=== PATIENT | male | born 1950 | race Caucasian/White ===

== ENCOUNTER → 2018-11-30 10:14 | Outpatient (CLI) | payer MEDICARE, SELFPAY ==
[2018-11-30 12:55] LABS: PSA,Total- Diagnostic 2.52 ng/mL (0.0-4.0)
== END ==
PROVIDERS: Family Provider Internal Medicine; PCP Internal Medicine; Referring Provider Nurse Practitioner Adult Health; Visit Provider Nurse Practitioner Adult Health
DX: R97.20 Elevated prostate specific antigen [PSA] (principal)
CPT/HCPCS: 36415; 84153

== ENCOUNTER 2022-12-08 20:11 | Emergency (ER) | payer MEDICARE, SELFPAY ==
[2022-12-08 20:11] VITALS: BP 128/93; PULSE 103; RESP 18; TEMP 36.4; O2SAT 99
[2022-12-08 20:23] VITALS: BMI 35.6
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
== END 2022-12-08 21:27 | disposition home or self-care (01) ==
LOC: ED 21:23
PROVIDERS: Emergency Provider Emergency Medicine; PCP Internal Medicine; Visit Provider Emergency Medicine
DX: R52 Pain, unspecified (principal); E11.9 Type 2 diabetes mellitus without complications; Z79.4 Long term (current) use of insulin; I10 Essential (primary) hypertension; Z79.899 Other long term (current) drug therapy; Z79.84 Long term (current) use of oral hypoglycemic drugs; Z79.85 Long-term (current) use of injectable non-insulin antidiabetic drugs; V43.52XA Car driver injured in collision with other type car in traffic accident, initial encounter; Y92.410 Unspecified street and highway as the place of occurrence of the external cause
CPT/HCPCS: 99283

== ENCOUNTER → 2023-02-26 | Outpatient (CLI) | payer MEDICARE, SELFPAY ==
--- NOTE | 2023-02-26 08:13 | US_ITS ---
STUDY: ABDOMINAL ULTRASOUND - RIGHT UPPER QUADRANT; ELASTOGRAPHY REASON FOR VISIT: Male, 72 years old. Fatty infiltration of the liver. TECHNIQUE: Ultrasound evaluation of the right upper quadrant was performed with real-time and static smith-scale imaging. Point quantification shear wave elastography was performed (adQ). TECHNICAL QUALITY: Adequate. COMPARISON: None. FINDINGS: Liver: The liver measures 16.3 cm. There is increased echogenicity consistent with fatty infiltration. The bile ducts are within normal limits. There is hepatic color flow. The direction of portal flow is hepatopetal. There is no demonstrated mass lesion. Median liver stiffness measured 10 kPa. Gallbladder: The patient is status post cholecystectomy. Common Bile Duct (C.B.D.): The common bile duct measures 5 mm. Pancreas: The pancreas was not visualized due to overlying bowel gas. Right Kidney: Normal size of the right kidney. The right kidney measures 10.4 cm x 5.8 cm x 6.6 cm. Normal renal cortex. The right cortex measures 1.8 cm. There is no demonstrated renal mass or cyst. There is no right hydronephrosis. US/ABD Limited w/ Elastography IMPRESSION: 1. Liver stiffness measures 10 kPa compatible with F2-F3 (Mild to moderate liver fibrosis) Metavir score. Electronically Signed: Thor Ramos MD at 10:10 EDT ,
== END | disposition home or self-care (01) ==
LOC: US 08:12
PROVIDERS: PCP Internal Medicine; Referring Provider Internal Medicine Gastroenterology; Visit Provider Internal Medicine Gastroenterology
DX: K76.0 Fatty (change of) liver, not elsewhere classified (principal)
CPT/HCPCS: 76705; 76981

== ENCOUNTER 2023-11-15 16:32 | Emergency (ER) | payer MEDICARE, SELFPAY ==
[2023-11-15 16:32] VITALS: BP 156/86; PULSE 102; RESP 20; TEMP 36.1; O2SAT 97; BMI 36.2
--- NOTE | 2023-11-15 16:46 | EDS_ITS ---
HPI History of Present Illness Chief Complaint: Allergic Reaction Informant: patient and spouse/S.O. Onset/Context/Timing Onset: Today Narrative Narrative: Patient presents after a sting to the left index finger. He states he felt something crawling on his hair and when he swatted at it he was stung on the left index finger. He does not know if it was the bee or wasp. 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 He denies shortness of breath, throat tightness, tongue swelling. He denies hives or itching. He did not have his EpiPen with him. [facility] Medical History Anemia HTN (hypertension) Diabetes Home Medications ?Medication ?Instructions ?Recorded ?Last Taken ?Type alogliptin 6.25 mg tablet 6.25 mg PO DAILY 12/08/22 Unknown History empagliflozin 25 mg tablet 25 mg PO DAILY 12/08/22 Unknown History (Jardiance) insulin glargine 100 unit/mL (3 54 unit subcut DAILY 12/08/22 Unknown History mL) subcutaneous pen (Lantus Solostar U-100 Insulin) metformin 1,000 mg tablet 1,000 mg PO BID 12/08/22 Unknown History sitagliptin phosphate 50 mg tablet 50 mg PO DAILY 12/08/22 Unknown History (Januvia) Allergy/AdvReac Type Severity Reaction Status Date / Time bee venom protein (honey bee) Allergy Severe Anaphylaxis Verified 12/08/22 20:15 Penicillins Allergy Mild Rash Verified 12/08/22 20:15 Barbiturates Allergy Unknown unknown Verified 12/08/22 20:15 Social History Smoking Status: Never smoker ROS [facility] ED Constitutional Constitutional ED: Denies chills or fever(s) ENT ENT ED: Denies rhinorrhea or sore throat Cardiovascular Cardiovascular: Denies chest pain or palpitations Respiratory/Chest Respiratory/Chest: Denies cough or dyspnea Gastrointestinal Gastrointestinal: Denies abdominal pain, nausea or vomiting Musculoskeletal Musculoskeletal: Reports extremity pain; Denies back pain Integumentary Denies Abrasions or rash Neurologic Neurologic: Denies headache(s) or weakness Psychiatric Psychiatric: Denies anxiety or depression Allergic/Immunologic Allergic/Immunologic ED: Denies lip swelling or urticaria EXAM Physical Exam Const Vital Signs: 11/15/23 16:32 Temperature 97 F L Temperature Source Temporal Pulse Rate 102 H Respiratory Rate 20 H Blood Pressure 156/86 H Blood Pressure Mean 109 Pulse Ox 97 Oxygen Delivery Method Room Air Positive well nourished and well developed General Appearance ED: well developed HEENT Reports moist mucous membranes Eyes EOMs intact bilaterally Chest Wall inspection of chest normal and palpation of chest normal Resp normal respiratory effort and clear to auscultation bilaterally Cardio regular rate and regular rhythm GI non-tender and non-distended Extremity Extremity Narrative: Patient with a puncture wound to the proximal phalanx of the left index finger. Edema noted. Good range of motion with good cap refill and sensation distally. Neuro oriented x3 and no sensory deficits noted Motor Exam: strength 5/5 throughout Psych mental status grossly normal MDM MDM MDM Narrative Medical decision making narrative: Patient placed on monitor worker. Ice pack applied to the left hand. Benadryl, Pepcid, and prednisone given. Patient was observed for 2 hours after arrival. He has had no symptoms. He will be discharged home with his . Return instructions provided. Discharge Plan Triage Chief Complaint: Allergic Reaction ED Provider: Melonie Duron Dx/Rx/DC Orders Clinical Impression: Bee sting Instructions: ED BEE STING General Allergic Rxn Prescriptions: No Action metformin 1,000 mg tablet 1,000 mg PO BID alogliptin 6.25 mg tablet 6.25 mg PO DAILY Januvia 50 mg tablet 50 mg PO DAILY Jardiance 25 mg tablet 25 mg PO DAILY insulin glargine [Lantus Solostar U-100 Insulin] 100 unit/mL (3 mL) insulin pen 54 unit subcut DAILY Primary Care Provider: Robb Izquierdo Referrals: Robb Izquierdo DO [Primary Care Provider] - As Needed Print Language: Persian Disposition Disposition: Home, Self Care
[2023-11-15] MEDS: Famotidine 20 MG Tablet 40 MG PO (16:51)
[2023-11-15] MEDS: predniSONE 20 MG Tablet 60 MG PO (16:51)
[2023-11-15] MEDS: DiphenhydrAMINE 25 MG Capsule 50 MG PO (16:51)
[2023-11-15 19:06] VITALS: BP 158/85; PULSE 90; RESP 16; TEMP 36.6; O2SAT 98
== END 2023-11-15 19:07 | disposition home or self-care (01) ==
PROVIDERS: Emergency Provider Emergency Medicine; PCP Internal Medicine; Visit Provider Emergency Medicine
DX: T63.441A Toxic effect of venom of bees, accidental (unintentional), initial encounter (principal); E11.9 Type 2 diabetes mellitus without complications; Z79.4 Long term (current) use of insulin; I10 Essential (primary) hypertension; Z79.84 Long term (current) use of oral hypoglycemic drugs; Z79.899 Other long term (current) drug therapy
CPT/HCPCS: 99283